=== PATIENT | female | born 1950 | race Caucasian/White ===

== ENCOUNTER → 2016-08-05 | Outpatient (CLI) | payer MEDICARE, OTHER | END | disposition home or self-care (01) | LOC: CDC 09:37 | DX: Z01.810 Encounter for preprocedural cardiovascular examination (principal); S83.232D Complex tear of medial meniscus, current injury, left knee, subsequent encounter; M17.12 Unilateral primary osteoarthritis, left knee | CPT/HCPCS: 93000 ==

== ENCOUNTER 2016-12-02 10:54 | Inpatient (IN) | payer OTHER ==
[~2016-12-02] VITALS: Ht 160 cm; Wt 63.3 kg
[2016-12-02 11:50] LABS: MCH 32.9 PG (29.0-34.0); MCHC 32.8 G/DL (30.0-36.0); MCV 100.2 FL (83-99); RBC DIS.WIDTH-CV 13.1 % (11.8-14.6); RBC DIS.WIDTH-SD 48.8 % (39-53); RED BLOOD COUNT 4.59 M/uL (3.80-5.20); WHITE BLOOD COUNT 4.6 K/uL (4.1-10.2)
[2016-12-02 12:00] LABS: PROTHROMBIN TIME 10.3 (9.2-11.2); PTT 29.4 (25-32)
[2016-12-02 12:05] LABS: CHLORIDE 106 mEq/L (99-109)
[2016-12-02 12:06] LABS: POTASSIUM 4.2 mEq/L (3.7-5.4); SODIUM 140 mEq/L (136-147)
[2016-12-02 12:07] LABS: GLUCOSE 85 mg/dL (70-99)
[2016-12-02 12:09] LABS: ANION GAP 10 MEQ/L (2-14)
[2016-12-02 12:11] LABS: GFR ESTIMATE (CALCULATED) > 59 mL/min/
[2016-12-02 12:12] LABS: UREA NITROGEN (BUN) 20 mg/dL (9-23)
[2016-12-02 12:16] LABS: TROP-I INTERPRETATION POSITIVE
[2016-12-02 12:17] LABS: TROPONIN-I 3.03 ng/mL (0.0-0.30)
[2016-12-02 12:50] LABS: MEAN PLAT.VOLUME 12.2 uM^3 (9.5-12.4); PLATELET COUNT 113 K/uL (156-360)
[2016-12-02] MEDS ORDERED: DULERA 100 MCG/13 GM IH (14:34)
[2016-12-02] MEDS ORDERED: ASPIRIN81 M2 PO (14:34)
[2016-12-02] MEDS ORDERED: ODOR FREE GARL100 MG PO (14:35)
[2016-12-02] MEDS ORDERED: LISINOPRIL30 MG PO (14:35)
[2016-12-02 15:18] LABS: HDL CHOLESTEROL 46 MG/DL (Desirable>=50); LDL CHOLESTEROL 96 mg/dL (Desirable<100); NON-HDL CHOLESTEROL 110 mg/dL (Desirable<160); TOTAL CHOLESTEROL 156 mg/dL (Desirable<200); TRIGLYCERIDES 72 MG/DL (Normal: <150)
[2016-12-02 17:16] LABS: Estimated Average Glucose 117 mg/dL (70-123); HEMOGLOBIN A1c (GLYCOHEMOGLOB) 5.7 % HGB (Below 5.7)
[2016-12-02 19:47] VITALS: BP 142/76
[2016-12-02 23:19] VITALS: BP 132/73
[2016-12-03 01:31] LABS: TROP-I INTERPRETATION POSITIVE; TROPONIN-I 4.76 ng/mL (0.0-0.30)
[2016-12-03 05:04] VITALS: BP 127/701; BP 127/71
[2016-12-03 07:16] VITALS: BP 125/76
[2016-12-03 07:57] LABS: EOSINOPHIL (%) 2.1 % (0-5); EOSINOPHIL COUNT 0.1 K/uL (0-0.3); HEMATOCRIT 40.2 % (36.0-46.0); IMMATURE GRANULOCYTE (%) 0.4 % (0.0-0.7); INSTRUMENT ABS NEUTROPHIL CT 3.2 K/uL; LYMPHOCYTE COUNT 1.3 K/uL (1.0-2.8); MCH 32.7 PG (29.0-34.0); MCHC 32.3 G/DL (30.0-36.0); MEAN PLAT.VOLUME 12.4 uM^3 (9.5-12.4); MONOCYTE (%) 10.1 % (3-12); MONOCYTE COUNT 0.5 K/uL (0-0.8); NEUTROPHIL COUNT 3.2 K/uL (1.8-6.4); PLATELET COUNT 97 K/uL (156-360); RBC DIS.WIDTH-CV 13.1 % (11.8-14.6); RBC DIS.WIDTH-SD 49.1 % (39-53); RED BLOOD COUNT 3.98 M/uL (3.80-5.20); WHITE BLOOD COUNT 5.2 K/uL (4.1-10.2)
[2016-12-03 08:23] LABS: TROP-I INTERPRETATION POSITIVE
[2016-12-03] MEDS ORDERED: VITAMIN D31000 UNI2 PO (10:31)
[2016-12-03] MEDS ORDERED: PATADAY2.5 ML BOTH EYES (10:32)
[2016-12-03] MEDS ORDERED: GARLIQUE5000 MCG PO (10:33)
[2016-12-03 11:34] VITALS: BP 130/78
[2016-12-03 12:16] LABS: TROP-I INTERPRETATION POSITIVE; TROPONIN-I 3.99 ng/mL (0.0-0.30)
[2016-12-03 15:32] VITALS: BP 147/79
[2016-12-03 17:05] LABS: CHLORIDE 110 mEq/L (99-109); POTASSIUM 4.2 mEq/L (3.7-5.4); SODIUM 140 mEq/L (136-147)
[2016-12-03 17:07] LABS: GLUCOSE 84 mg/dL (70-99)
[2016-12-03 17:08] LABS: ANION GAP 8 MEQ/L (2-14)
[2016-12-03 17:10] LABS: GFR ESTIMATE (CALCULATED) > 59 mL/min/
[2016-12-03 17:11] LABS: UREA NITROGEN (BUN) 15 mg/dL (9-23)
[2016-12-03 19:41] VITALS: BP 130/67
[2016-12-04 00:52] VITALS: BP 114/67
[2016-12-04 04:27] VITALS: BP 140/62
[2016-12-04 09:11] LABS: EOSINOPHIL (%) 2.6 % (0-5); EOSINOPHIL COUNT 0.1 K/uL (0-0.3); HEMATOCRIT 42.1 % (36.0-46.0); IMMATURE GRANULOCYTE (%) 0.2 % (0.0-0.7); INSTRUMENT ABS NEUTROPHIL CT 2.6 K/uL; MCH 32.7 PG (29.0-34.0); MCV 99.1 FL (83-99); MEAN PLAT.VOLUME 12.1 uM^3 (9.5-12.4); MONOCYTE (%) 12.6 % (3-12); MONOCYTE COUNT 0.5 K/uL (0-0.8); NEUTROPHIL (%) 59.8 % (45-76); NEUTROPHIL COUNT 2.6 K/uL (1.8-6.4); PLATELET COUNT 101 K/uL (156-360); RBC DIS.WIDTH-CV 12.9 % (11.8-14.6); RBC DIS.WIDTH-SD 47.3 % (39-53); RED BLOOD COUNT 4.25 M/uL (3.80-5.20); WHITE BLOOD COUNT 4.3 K/uL (4.1-10.2)
[2016-12-04 09:24] VITALS: BP 122/69
[2016-12-04 09:34] LABS: ANION GAP 8 MEQ/L (2-14); CHLORIDE 107 MEQ/L (99-109); GFR ESTIMATE (CALCULATED) > 59 mL/min/; GLUCOSE 85 mg/dL (70-99); POTASSIUM 3.9 MEQ/L (3.7-5.4); SAMPLE HEMOLYSIS CHECK 0; SAMPLE ICTERIC CHECK 0; SAMPLE LIPEMIA CHECK 0; SODIUM 140 MEQ/L (136-147); UREA NITROGEN (BUN) 17 mg/dL (9-23)
[2016-12-04] MEDS ORDERED: ATORVASTATIN CA40 MG PO (10:51)
[2016-12-04] MEDS ORDERED: LOPRESSOR25 MG PO (10:51)
[2016-12-04] MEDS ORDERED: BRILINTA90 MG PO (10:51)
[2016-12-04] MEDS ORDERED: ASPIR-LOW81 MG PO (10:53)
[2016-12-04] MEDS ORDERED: LISINOPRIL20 MG PO (10:54)
== END 2016-12-04 13:37 | disposition home or self-care (01) | DRG 247 ==
LOC: EME 10:54 → 4EAST 13:56 → EDOF 13:56 → EME 14:30 → 4EAST 19:34
PROVIDERS: Hospitalist; Internal Medicine; Internal Medicine Cardiovascular Disease
DX: I21.4 Non-ST elevation (NSTEMI) myocardial infarction (principal); I25.110 Atherosclerotic heart disease of native coronary artery with unstable angina pectoris; D69.6 Thrombocytopenia, unspecified; E86.0 Dehydration; I71.2 Thoracic aortic aneurysm, without rupture; J45.909 Unspecified asthma, uncomplicated; I11.9 Hypertensive heart disease without heart failure; E78.5 Hyperlipidemia, unspecified; I24.9 Acute ischemic heart disease, unspecified; Z87.891 Personal history of nicotine dependence; Z91.048 Other nonmedicinal substance allergy status; Z91.040 Latex allergy status; Z09 Encounter for follow-up examination after completed treatment for conditions other than malignant neoplasm
CPT/HCPCS: 71020; 80048; 80061; 83036; 84484; 85025; 85027; 85347; 85610; 85730; 93005; 93306; 99202; 99281; 99284; C1725; C1769; C1874; C1887; J1644; J2250; J3010; J3246; J7030